=== PATIENT | female | born 1965 | race Caucasian/White ===

== ENCOUNTER → 2023-08-03 06:38 | Day surgery (SDC) | payer BC, SELFPAY | LOC: GI 06:38 | PROVIDERS: ATTENDING PHYSICIAN Internal Medicine Gastroenterology | DX: D12.5 Benign neoplasm of sigmoid colon (principal); K63.5 Polyp of colon; K63.89 Other specified diseases of intestine; K57.30 Diverticulosis of large intestine without perforation or abscess without bleeding; K29.50 Unspecified chronic gastritis without bleeding; K20.90 Esophagitis, unspecified without bleeding; K22.89 Other specified disease of esophagus; K44.9 Diaphragmatic hernia without obstruction or gangrene; K21.9 Gastro-esophageal reflux disease without esophagitis; Q39.9 Congenital malformation of esophagus, unspecified; Z86.010 Personal history of colon polyps | CPT/HCPCS: 45385; 45380; 43239; 88305; 88341; 88342 ==

== ENCOUNTER → 2023-09-01 06:37 | Outpatient (REF) | payer BC, SELFPAY | LOC: MRI 06:37 | PROVIDERS: ATTENDING PHYSICIAN Orthopaedic Surgery; FAMILY PHYSICIAN Family Medicine | DX: M25.562 Pain in left knee (principal) | CPT/HCPCS: 73721 ==

== ENCOUNTER → 2024-02-25 17:36 | Outpatient (REF) | payer BC, SELFPAY | LOC: RAD 17:36 | PROVIDERS: ATTENDING PHYSICIAN Family Medicine | DX: R05.3 Chronic cough (principal) | CPT/HCPCS: 71046 ==